=== PATIENT | female | born 1995 | race Caucasian/White ===

== ENCOUNTER 2020-01-18 13:27 | Emergency (ER) | payer MEDICAID ==
[~2020-01-18] VITALS: Ht 154.9 cm; Wt 68.9 kg
[2020-01-18 14:09] VITALS: BP 133/64
--- NOTE | 2020-01-18 14:14 | NUR ---
WAIT AT LOBBY.
--- NOTE | 2020-01-18 16:32 | NUR ---
PT AMBULATED TO ER BED 06
--- NOTE | 2020-01-18 16:45 | NUR ---
PT SEEN AND EVALUATED BY JOAQUIN GORDON, NO NURSING INTERVENTIONS REQUIRED AT THIS TIME
[2020-01-18 17:04] VITALS: BP 115/78
== END 2020-01-18 17:04 | disposition home or self-care (01) ==
LOC: EEVIPCON 13:27 → MED 13:27
DX: M79.605 Pain in left leg (principal)
CPT/HCPCS: 99282

== ENCOUNTER 2023-10-05 01:25 | Emergency (ER) | payer MEDICAID ==
[~2023-10-05] VITALS: Ht 154.9 cm; Wt 83.0 kg
[2023-10-05 01:48] VITALS: BP 127/66; PULSE 86; RESP 16; TEMP 97.6; O2SAT 95
[2023-10-05 03:24] VITALS: O2SAT 99
[2023-10-05] MEDS ORDERED: LORA1T1237 PO (03:38)
[2023-10-05] MEDS ORDERED: [UNRECOGNIZED DRUG - CODE] PO (03:38)
[2023-10-05] MEDS ORDERED: POLY10DR5 OP (03:38)
== END 2023-10-05 03:44 | disposition home or self-care (01) ==
LOC: MED 01:25
DX: H10.89 Other conjunctivitis (principal); J06.9 Acute upper respiratory infection, unspecified; B97.89 Other viral agents as the cause of diseases classified elsewhere; Z79.899 Other long term (current) drug therapy; Z88.8 Allergy status to other drugs, medicaments and biological substances
CPT/HCPCS: 99282